=== PATIENT | female | born 1950 ===

== ENCOUNTER 2019-08-24 06:20 | Inpatient (IN) ==
[~2019-08-24 06:20] MED LIST: Bacitracin 50,000 UNIT, Polymyxin B Sulfate 500,000 UNIT, Sodium Chloride IRRigation 1,... IR ONE
--- NOTE | 2019-08-24 06:56 | History & Physical Report ---
Date of Encounter: 08/24/19 Time of Encounter: 06:55 24 Hour HP Update - Instructions Instructions: If the History and Physical is less than 30 days old and was completed prior to A.M. admission and or procedure and has NOT been updated on calendar day of procedure please complete this update prior to performing procedure. - Update Patient reports changes in Medical Condition: No Changes in examination, assessment, or condition: No Changes in Medication: No Preop tests/diagnostics Reviewed: Yes Pre-Op MRSA Screen: Negative Surgery Remains Indicated: Yes Consent for Planned Operative Procedure(s) Verified: Yes - Pre-Operative Checklist Preoperative Checklist Indicated: No Prophylactic Antibiotic Ordered: Yes Home Medications Include Beta Roula: No Beta Roula Taken Today (Day of Surgery): No Beta Roula Taken Yesterday (Day Prior to Surgery): No Is VTE Prophylaxis Indicated?: Yes
[2019-08-24] MEDS ORDERED: CeFAZolin Syr 2,000MG/20 ML 2,000 MG/20 ML SYRINGE IVPB ONE (06:58)
[2019-08-24] MEDS ORDERED: Albuterol 2.5 MG/3 ML NEBULIZER IH ONE (06:58)
[2019-08-24] MEDS ORDERED: *HR* OxyCODONE Immed Rel 5 MG TABLET PO PRN (06:59)
[2019-08-24] MEDS ORDERED: *HR* HYDROmorphone (PF) 1 MG/ML SYRINGE IVP PRN (06:59)
[2019-08-24] MEDS ORDERED: Ondansetron 4 MG/2 ML VIAL IVP ONE (06:59)
[2019-08-24] MEDS ORDERED: *HR* Promethazine 25 MG/ML VIAL IVP PRN (06:59)
[2019-08-24] MEDS ORDERED: Ringers Solution, Lactated 1,000 ML IVC SCH ×2 (07:00→13:46)
--- NOTE | 2019-08-24 07:03 | Anesthesia Evaluation PreOp ---
Date of Encounter: 08/24/19 Time of Encounter: 07:00 - Past History Planned Operation: PLIF L3-5 Cardiac History: HTN, Hyperlipidemia Pulmonary History: Smoker (3 cigs day), COPD (3L O2 at Night) CABLE TENDER History: Other (Bopolar, Schizophrenia) Other Medical History: Thyroid (Hypo), Other (Obese) Anesthesia History: No Prior Anesthetic Complications, Past Anesthesia (ELAINE, GB, Thoracotomy, Lumbar Radiculopathy) : No Alcohol Use: none Drug use: marijuana Medications and Allergies Aspirin [Lo-Dose Aspirin EC] 81 mg PO DAILY 08/24/19 [History] Citalopram [CeleXA] 20 mg PO DAILY 08/24/19 [History] Cyclobenzaprine [Flexeril] 10 mg PO TID PRN 08/24/19 [History] Ergocalciferol (VITAMIN D2) [Vitamin D2] 50,000 unit PO WE 08/24/19 [History] Estrogens, Conjugated [Premarin] 1.25 mg PO DAILY 08/24/19 [History] Fluticasone/Umeclidin/Vilanter [Trelegy Ellipta 100-62.5-25] 1 puff IH DAILY 08/24/19 [History] Ipratropium/Albuterol Neb [Duoneb] 3 ml IH Q6HR 08/24/19 [History] Ipratropium/Albuterol Sulfate [Combivent Respimat Inhal [place]] 1 puff IH QID PRN 08/24/19 [History] Levothyroxine [Synthroid] 75 mcg PO DAILY 08/24/19 [History] Lisinopril [Zestril] 10 mg PO DAILY 08/24/19 [History] Lovastatin [Mevacor] 20 mg PO HS 08/24/19 [History] Metoprolol [Lopressor] 25 mg PO BID 08/24/19 [History] Montelukast [Singulair] 10 mg PO DAILY 08/24/19 [History] Spironolact/Hydrochlorothiazid [Aldactazide 25-25 Tablet] 1 tab PO DAILY 08/24/19 [History] clonazePAM [Clonazepam] 1 mg PO TID PRN 08/24/19 [History] risperiDONE [Risperidone] 1 mg PO DAILY 08/24/19 [History] Allergy/AdvReac Type Severity Reaction Status Date / Time Erythromycin Base Allergy Anaphylaxis Verified 08/24/19 07:14 - Meds/Allergy Pre-op Review Medications Reviewed: Yes Allergies Reviewed: Yes Beta Blockers on Current Med List: Yes If Beta Blockers taken, Date/Time (Last Dose taken): 04:00 Anesthesia Results - Labs Laboratory Tests 08/04/19 08/04/19 08/04/19 15:36 15:36 15:36 WBC 12.6 H Hgb 12.4 Hct 37.4 Plt Count 456 H INR 1.0 Sodium 136 Potassium 4.0 Chloride 103 Carbon Dioxide 25 BUN 11 Creatinine 0.54 L - Imaging EKG: report reviewed (SINUS RHYTHM WITH SHORT W[place] INTERVAL POSSIBLE INFERIOR MYOCARDIAL INFARCTION, PROBABLY OLD Electronically Signed On 08-06-2019 17:35:55 EDT by Hilario Floyd) Additional studies: 08/13/19 Stress EF > 69% No Ischemia Anesthesia Exam O2 Sat Height 1.59 m Weight 95.254 kg O2 Sat by Pulse Oximetry 95 Vital Signs Temp Pulse Resp BP Pulse Ox 98.2 F 89 18 150/80 95 08/24/19 06:49 08/24/19 06:49 08/24/19 06:49 08/24/19 06:49 08/24/19 06:49 NPO (# of Hours): > 8 hrs Pain Scale: 0 Pain Scale Used: Numeric (1 - 10) - HEENT Pupil (Motor): Pupils equal, EOMI Mallampati: II Teeth: Missing Denture Type: Upper: Complete Oral Opening: Greater than 3 - CABLE TENDER LOC: Oriented CABLE TENDER Motor: Normal RUE, Normal LUE, Normal RLE, Normal LLE, Normal Face CABLE TENDER Sensory: Normal: RUE, LUE, RLE, LLE, Face - Cardiac Rhythm: Regular Murmur: None JVD: No Carotid Bruit: No - Pulmonary Breath Sounds: bilateral Clear Respiratory Effort: Symmetrical Anesthesia Assess/Plan ASA Score: 3 Level of consciousness: Cooperative Anesthetic Plan: General Autologous Blood: Yes Monitoring Plan: Standard Monitors, A-Line Recovery Plan: PACU
[2019-08-24] MEDS ORDERED: Gabapentin 300 MG CAPSULE PO ONE (07:22)
[2019-08-24] MEDS ORDERED: Dexmedetomidine HCl 400 MCG/100 ML MLS IVC ONE (07:23)
[2019-08-24] MEDS ORDERED: Acetaminophen IV 1,000 MG/100 ML INFUS..BTL ONE (07:23)
[2019-08-24] MEDS ORDERED: *HR* Propofol 200 MG/20 ML VIAL IVP ONE (07:27)
[2019-08-24] MEDS ORDERED: *HR* FentaNYL (PF) 100 MCG/2 ML VIAL ONE (07:27)
[2019-08-24] MEDS ORDERED: *HR* Midazolam HCl 2 MG/2 ML VIAL ONE (07:27)
[2019-08-24] MEDS ORDERED: *HR* Succinylcholine 200 MG/10 ML VIAL IVP ONE (07:31)
[2019-08-24] MEDS ORDERED: Lidocaine -MPF 2% 2 ML VIAL ONE (07:31)
[2019-08-24] MEDS ORDERED: *HR* Rocuronium Bromide 50 MG/5 ML VIAL ONE (07:31)
[2019-08-24] MEDS ORDERED: Lidocaine HCL 4 ML Topical Solution (Laryng-O-Jet Kit Sterile Pak) TP ONE (07:32)
[2019-08-24] MEDS ORDERED: Heparin 1,000 UNITS/500 mL 500 ML ONE (07:33)
[2019-08-24] MEDS ORDERED: *HR* HYDROMORPHONE 2 MG/ML VIAL ONE ×2 (08:37→11:13)
[2019-08-24] MEDS ORDERED: Ondansetron 4 MG/2 ML VIAL ONE (08:44)
[2019-08-24] MEDS ORDERED: Dexamethasone 4 MG/ML VIAL ONE (08:44)
[2019-08-24] MEDS ORDERED: *HR* PHENYLEPHRINE 1,000 MCG/10 ML SYRINGE IVP ONE (09:34)
[2019-08-24] MEDS ORDERED: Ketorolac 30 MG/ML VIAL ONE (11:09)
[2019-08-24] MEDS ORDERED: Neostigmine Methylsulfate 3 MG/3 ML SYRINGE ONE (11:10)
--- NOTE | 2019-08-24 11:51 | Orthopedic Operative Note ---
Date of procedure: 08/24/19 Pre-op diagnosis: Spondylolisthesis, lumbar stenosis, lumbar radiculopathy Post-op diagnosis: same Operation/Findings: Posterior lumbar interbody fusion L3-L5: The patient successfully underwent general endotracheal anesthesia. The patient was given antibiotics prior to the start of the procedure. Compression boots and stockings were used for deep vein thrombosis prophylaxis. A Perez catheter was placed. Leads for neuro monitoring were placed on the upper and lower extremities. This included the cranium. The neuro monitoring personnel confirmed there were satisfactory readings prior to the start of the procedure. The patient was turned prone on the [place] table. The back was prepped and draped in the usual sterile fashion. An incision was was marked and centered over the involved L3-L5 levels in the mid line. The incision was deepened through the lumbar fascia. Bovie cautery and Schuster elevators were used to reflect the paraspinal musculature at the lateral extent of the transverse processes of the involved L3-L5 levels. Ingrid clamps were placed over the L4 and L5 spinous processes. An intraoperative lateral fluorograph was obtained. A conversation was held between the surgeon and radiologist and both confirmed we had the correct operative levels. We then placed pedicle screws in standard fashion with the aid of fluoroscopy and anatomic landmarks. Briefly a starter awl was used. A gearshift was subsequently used to enter the company pilot hole via a transpedicular route into the vertebral body. The company pilot hole was tapped with an undersized instrument, and subsequently three 6.5 x 40 mm pedicle screws were placed on the left side at the indicated L3, L4, and L5 levels. The screws were tested with the aid of the neurologic monitoring staff via pedicle screw stimulation. All reading suggested there was no significant cortical wall breech. The screws were also evaluated fluoro- graphically and appeared to be in satisfactory position. We then turned our attention to the decompression portion of the procedure. We removed the supraspinous and interspinous ligaments and subsequently the insertion of the ligamentum flavum on the undersurface of the proximal L4 lamina was dislodged with a curette. We then removed the ligamentum flavum as well as undercut the L4-L5 facets at this L4-L5 level to decompress the lateral recesses. We also performed a L4 laminectomy. We moved proximally to the L3-4 level and again removed the supraspinous and interspinous ligaments, undercut the L3-4 facets, did a partial L3 laminectomy, and did partial medial facetectomies at L3-4. After the decompression, which was over and above that which was required to place the interbody grafts, the foramen and traversing roots at the L3-4 and L4-5 levels were found to be free and patent. We also took part of the medial facets at these levels in order to aid in the decompression. We then protected the neural elements including the thecal sac and traversing nerve root on the left at L4-5 with a dural retractor. We made an annulotomy into the L4-L5 disc space and then removed entire disc material using Pituitary instruments. We trialed various size grafts after the endplates were prepared for graft insertion. A 10 x 26 enter body graft fit well within the L4-L5 disc space. We obtained some bone from the left posterior superior iliac spine through us a separate incision and combined with this with the bone which we had saved from the laminectomy of L3 and L4 portion of the procedure. This autograft bone was first placed in the anterior portion of the L4-L5 disc space and additional bone was placed within the interbody graft spacer. We then placed the interbody graft spacer obliquely across the L4-L5 disc space towards the midline while protecting the neural elements with a root retractor. When the graft was found to be in satisfactory position the oval or circular glass cutter was removed. We then repeated the procedure the L3-4 disks by removing entire disc material at L3-4 after an annulotomy, preparing the endplates at L3 and L4 for graft insertion, trialing the graft size. An 8 x 26 mm interbody graft fit well within L3-4 and after packing the anterior portion of the disc space with autograft bone, we placed and interbody spacer packed with bone graft obliquely across the L3-4 disc space towards the midline. After the graft was in satisfactory position this oval or circular glass cutter was removed. We then copiously irrigated the wound. We then decorticated the L3, L4, and L5 transverse processes bilaterally as well as the facet joints of the involved L3-4, and L4-5 levels to aid in the posterolateral fusion. We placed autograft bone in the lateral gutters over these regions. We then placed rods within the screw heads of the involved L3-L5 levels and first locked the distal screws and then subsequently locked the proximal screws so as to improve and reduce the spondylolisthesis previously seen. We then closed the wound in layers with 1 Vicryl for the fascia, 2-0 Vicryl. Subcutaneous tissue, and Dermabond was used for skin closure. Sterile dressings were placed over the wound. The patient was turned supine on a hospital bed and extubated. All sponge instruments and needle counts were correct at the end of the procedure. The patient tolerated the procedure well without complications. Anesthesia: GETA Surgeon: Markos Ramon Jr Was there an residential assistant present: No Estimated blood loss (cc): 80 Specimen: None Condition: stable Disposition: PACU
--- NOTE | 2019-08-24 12:09 | Anesthesia Procedures ---
Date of Encounter: 08/24/19 Time of Encounter: 07:50 Procedures: Anesthesia - Arterial Line Consent obtained: written consent Time out performed: Yes Local Anesthetic: Other (lidocaine 2%) Amount of Anesthetic used (mls): 0.5 Size (Gauge): 20 Length (inches): 1 3/4 Technique Used: sterile prep, guide wire technique, direct puncture technique Post-Procedure: line sutured into place, line taped into place, dry sterile dressing placed Patient tolerated procedure: well, no complications Complications: none Site: Radial L Vitals: see anesthetic record
[2019-08-24] MEDS ORDERED: *HR* Metoprolol 5 MG/5 ML VIAL IVP ONE ×2 (13:10→13:12)
--- NOTE | 2019-08-24 13:31 | Anesthesia Evaluation Post Op ---
Date of Encounter: 08/24/19 Time of Encounter: 13:31 - Vital Signs Vital Signs: Vital Signs/O2 Sat, Most Current Temp Pulse Resp BP Pulse Ox 98.8 F 101 14 104/83 95 08/24/19 12:02 08/24/19 13:22 08/24/19 13:22 08/24/19 13:22 08/24/19 13:12 - Lungs Lungs: Clear Ascult./Percussion - Airway Airway: Non-obstructed - Cardiovascular Regular Rate - Mental Status Mental Status: Alert & Oriented, Answers Appropriately - Pain Pain Scale: 0 Pain Scale used: Numeric (1 - 10) - Nausea Vomiting Nausea Vomiting: Not Present - Hydration Hydration: Ice chips, Perez catheter - Discharge PostOp Status: Transfer Patient to floor
[2019-08-24] MEDS ORDERED: Naloxone 0.4 MG/ML INJ IVP PRN (13:46)
[2019-08-24] MEDS ORDERED: (Ipratropium/Albuterol Sulfate [Combivent Respimat 20 IH PRN (13:46)
[2019-08-24] MEDS ORDERED: Ondansetron 4 MG/2 ML VIAL IVP PRN (13:46)
[2019-08-24] MEDS ORDERED: Acetaminophen 325 MG TABLET PO PRN (13:46)
[2019-08-24] MEDS: Ipratropium/Albuterol Neb 3 ML IH SCH ×2 (16:35→22:30)
[2019-08-24] MEDS: *HR* HYDROcodone/Acet 5/325 mg TABLET PO PRN (16:55)
[2019-08-24] MEDS: *HR* OxyCODONE Immed Rel 5 MG TABLET PO PRN (21:22)
[2019-08-25] MEDS: *HR* HYDROcodone/Acet 5/325 mg TABLET PO PRN ×2 (02:25→17:51)
[2019-08-25] MEDS: Ipratropium/Albuterol Neb 3 ML IH SCH ×4 (04:04→22:26)
[2019-08-25] MEDS: clonazePAM 1 MG TABLET PO PRN ×2 (05:24→19:47)
[2019-08-25] MEDS: Cholecalciferol (D-3) 1,000 UNIT (25MCG) TABLET PO SCH (08:17)
[2019-08-25] MEDS: Aspirin Enteric Coated 81 MG Tablet PO SCH (08:17)
[2019-08-25] MEDS: risperiDONE 1 MG TABLET PO SCH (08:17)
[2019-08-25] MEDS: hydroCHLOROthiazide 25 MG TABLET PO SCH (08:17)
[2019-08-25] MEDS: Spironolactone 25 MG TABLET PO SCH (08:18)
[2019-08-25] MEDS: *HR* OxyCODONE Immed Rel 5 MG TABLET PO PRN ×2 (08:19→14:05)
[2019-08-25] MEDS: (Fluticasone/Umeclidin/Vilanter [Trelegy Ellipta 100- IH SCH (08:26)
--- NOTE | 2019-08-25 08:59 | Orthopedics Progress Note ---
Date of Encounter: 08/25/19 Time of Encounter: 11:30 - Assessment and Plan (1) Spondylolisthesis Current Visit: Yes Status: Chronic Qualifiers: Spinal region: unspecified Qualified Code(s): M43.10 - Spondylolisthesis, site unspecified (2) Lumbar radiculopathy Current Visit: Yes Status: Chronic (3) Lumbar stenosis Current Visit: Yes Status: Chronic Qualifiers: Neurogenic claudication status: unspecified Qualified Code(s): M48.061 - Spinal stenosis, lumbar region without neurogenic claudication (4) Status post lumbar spinal fusion Current Visit: Yes Status: Acute Subjective Principal diagnosis: s/p PLIF Interval history: s/p Posterior lumbar interbody fusion L3-L5 [Spondylolisthesis, lumbar stenosis, lumbar radiculopathy] 08/24/19 Patient seen at bedside. Patient sitting in chair. A&Ox3 Dressing and incision c/d/i LSO brace in place No calf tenderness, erythema, or warmth. Neurovascularly intact b/l LE. Labwork, vitals, and medications reviewed. Pain control: Adequate Participating in therapy. All questions and concerns addressed. Educated on use of incentive spirometer, ambulation, and hydration. Patient educated on post-operative restrictions and care. Addressed: see above. Patient course and disposition discussed with Dr. Ramon D/C plan: continue postoperative care Objective Vital signs: Vital Signs Temp Pulse Resp BP Pulse Ox 08/25/19 07:25 99.3 F 105 17 128/78 93 08/25/19 04:04 16 93 08/25/19 03:55 98.9 F 100 16 128/71 93 08/24/19 22:30 16 93 08/24/19 19:43 98.4 F 112 16 144/81 93 08/24/19 14:47 117 16 114/77 94 08/24/19 14:40 98.5 F 115 18 116/76 94 08/24/19 14:10 99.0 F 112 16 105/73 94 08/24/19 13:40 97.6 F 106 18 110/77 93 08/24/19 13:22 101 14 104/83 08/24/19 13:12 112 16 107/78 95 08/24/19 13:02 115 16 116/90 96 08/24/19 12:52 102 16 106/75 97 08/24/19 12:42 101 14 106/75 98 08/24/19 12:32 97 14 103/73 98 08/24/19 12:22 96 12 101/65 95 08/24/19 12:12 94 18 94/63 95 08/24/19 12:02 98.8 F 94 14 100/70 95 Intake and Output 08/24/19 08/25/19 08/25/19 23:59 07:59 15:59 Intake Total 100 / 120 550 / 550 Output Total 2400 / 2400 Balance 100 / -80 -1850 / -1850 Intake: IV Fluids 100 / 120 100 / 100 Ancef 2,000 MG In 0.9 % Sodium 100 / 100 100 / 100 Chloride 100 ML @ 200 mls/hr IVPB Q8HR [facility] Rx#:[id number] Oral 450 / 450 Output: Catheter 2400 / 2400 Other: # Voids 1 Consult Discharge Plan - Plan Referrals: Kaya Solano MD [Primary Care Provider] -
[2019-08-25] MEDS ORDERED: NON-FORMULARY MEDICATION 1 EACH EACH (Spironolact/Hydrochlorothiazid [Aldactazide 25-25 Ta PO SCH (09:00)
[2019-08-26] MEDS: *HR* HYDROcodone/Acet 5/325 mg TABLET PO PRN ×2 (00:15→08:13)
[2019-08-26] MEDS: *HR* OxyCODONE Immed Rel 5 MG TABLET PO PRN ×3 (03:16→20:03)
[2019-08-26] MEDS: Ipratropium/Albuterol Neb 3 ML IH SCH ×4 (03:43→22:13)
[2019-08-26] MEDS: Aspirin Enteric Coated 81 MG Tablet PO SCH (08:23)
[2019-08-26] MEDS: risperiDONE 1 MG TABLET PO SCH (08:24)
[2019-08-26] MEDS: Cholecalciferol (D-3) 1,000 UNIT (25MCG) TABLET PO SCH (08:24)
[2019-08-26] MEDS: Spironolactone 25 MG TABLET PO SCH (08:24)
[2019-08-26] MEDS: hydroCHLOROthiazide 25 MG TABLET PO SCH (08:24)
[2019-08-26] MEDS: (Fluticasone/Umeclidin/Vilanter [Trelegy Ellipta 100- IH SCH (08:33)
--- NOTE | 2019-08-26 11:00 | Orthopedics Progress Note ---
Date of Encounter: 08/26/19 Time of Encounter: 11:00 - Assessment and Plan (1) Spondylolisthesis Current Visit: Yes Status: Chronic Qualifiers: Spinal region: unspecified Qualified Code(s): M43.10 - Spondylolisthesis, site unspecified (2) Lumbar radiculopathy Current Visit: Yes Status: Chronic (3) Lumbar stenosis Current Visit: Yes Status: Chronic Qualifiers: Neurogenic claudication status: unspecified Qualified Code(s): M48.061 - Spinal stenosis, lumbar region without neurogenic claudication (4) Status post lumbar spinal fusion Current Visit: Yes Status: Acute Subjective Principal diagnosis: s/p PLIF Interval history: s/p Posterior lumbar interbody fusion L3-L5 [Spondylolisthesis, lumbar stenosis, lumbar radiculopathy] 08/24/19 Patient seen at bedside. Patient sitting in chair. A&Ox3 Dressing and incision c/d/i LSO brace in place No calf tenderness, erythema, or warmth. Neurovascularly intact b/l LE. Labwork, vitals, and medications reviewed. Pain control: Adequate Participating in therapy. All questions and concerns addressed. Educated on use of incentive spirometer, ambulation, and hydration. Patient educated on post-operative restrictions and care. Addressed: see above. Patient course and disposition discussed with Dr. Ramon D/C plan: continue postoperative care Objective Vital signs: Vital Signs Temp Pulse Resp BP Pulse Ox 08/26/19 10:21 18 94 08/26/19 07:40 99.5 F 95 16 129/81 93 08/26/19 03:45 18 95 08/26/19 03:11 99.2 F 92 16 115/70 95 08/25/19 22:48 99.8 F H 94 18 102/60 93 08/25/19 22:28 18 94 08/25/19 18:49 99.9 F H 114 17 102/71 93 08/25/19 16:00 18 92 08/25/19 15:49 100.0 F H 110 18 110/63 93 08/25/19 11:42 98.7 F 97 18 102/68 92 Intake and Output 08/25/19 08/26/19 08/26/19 23:59 07:59 15:59 Intake Total 200 / 1830 50 / 170 120 / 170 Balance 200 / -570 50 / 170 120 / 170 Intake: Oral 200 / 1730 50 / 170 120 / 170 Other: Meal Breakfast Percent of Meal Consumed 50% # Voids 1 1 Weight 95.3 kg Patient Weight 08/26/19 23:59 Weight 95.3 kg - Labs Labs: Abnormal lab results POC Glucose 150 mg/dL (70-99) H 08/26/19 03:08 Consult Discharge Plan - Plan Referrals: Kaya Solano MD [Primary Care Provider] -
[2019-08-26] MEDS: clonazePAM 1 MG TABLET PO PRN (17:14)
[2019-08-27] MEDS: *HR* HYDROcodone/Acet 5/325 mg TABLET PO PRN ×2 (00:15→09:10)
[2019-08-27] MEDS: Ipratropium/Albuterol Neb 3 ML IH SCH ×3 (04:00→15:40)
[2019-08-27] MEDS: *HR* OxyCODONE Immed Rel 5 MG TABLET PO PRN ×2 (05:36→13:41)
[2019-08-27] MEDS: Cholecalciferol (D-3) 1,000 UNIT (25MCG) TABLET PO SCH (09:04)
[2019-08-27] MEDS: Aspirin Enteric Coated 81 MG Tablet PO SCH (09:05)
[2019-08-27] MEDS: hydroCHLOROthiazide 25 MG TABLET PO SCH (09:05)
[2019-08-27] MEDS: Spironolactone 25 MG TABLET PO SCH (09:05)
[2019-08-27] MEDS: risperiDONE 1 MG TABLET PO SCH (09:05)
[2019-08-27] MEDS ORDERED: MOM Conc 10 ML UD.LIQ PO ONE (09:51)
[2019-08-27] MEDS: clonazePAM 1 MG TABLET PO PRN (10:10)
--- NOTE | 2019-08-27 13:48 | Discharge Summary ---
Date of Encounter: 08/27/19 Time of Encounter: 13:00 - Discharge Diagnosis (1) Spondylolisthesis Priority: Primary Status: Chronic Qualifiers: Spinal region: unspecified Qualified Code(s): M43.10 - Spondylolisthesis, site unspecified (2) Lumbar radiculopathy Priority: Primary Status: Chronic (3) Lumbar stenosis Priority: Primary Status: Chronic Qualifiers: Neurogenic claudication status: unspecified Qualified Code(s): M48.061 - Spinal stenosis, lumbar region without neurogenic claudication (4) Status post lumbar spinal fusion Priority: Primary Status: Acute - Hospital Course Hospital course: Ms. Ye is a 69 year old female s/p Posterior lumbar interbody fusion L3-L5 [Spondylolisthesis, lumbar stenosis, lumbar radiculopathy] 08/24/19 Patient seen at bedside. Patient sitting in chair. A&Ox3 Dressing and incision c/d/i LSO brace in place No calf tenderness, erythema, or warmth. Neurovascularly intact b/l LE. Labwork, vitals, and medications reviewed. Pain control: Adequate Participating in therapy. All questions and concerns addressed. Educated on use of incentive spirometer, ambulation, and hydration. Patient educated on post-operative restrictions and care. Addressed: Patient with ongoing scant drainage to dressing. Educated to change daily and nursing staff to provide with dressing supplies and instruction re: to change daily. Follow up next week for wound check. The patient's postoperative course was uneventful. Progressed from intravenous analgesic needs to oral analgesic needs only. Remained neurovascularly intact and mobilized satisfactorily. All radiographic studies were satisfactory. Patient course and disposition discussed with Dr. Ramon Patient is discharged to home with home health with plan for rehabilitation and outpatient orthopedic follow up has been arranged. - Time Spent with Patient Total time spent providing and/or coordinating discharge services: - Discharge Medications Prescriptions: New Docusate Sodium [Colace] 100 mg PO BID 5 Days #10 capsule Acetaminophen [Non-Aspirin Extra Strength] 500 mg PO Q6H PRN 7 Days #28 tablet PRN Reason: Mild To Moderate Pain OxyCODONE Immed Rel [Roxicodone 5 MG] 5 mg PO Q6HR PRN 5 Days #20 tablet PRN Reason: Severe Pain Continued Citalopram [CeleXA] 20 mg PO DAILY clonazePAM [Clonazepam] 1 mg PO TID PRN PRN Reason: Anxiety Cyclobenzaprine [Flexeril] 10 mg PO TID PRN PRN Reason: Muscle Spasm Ergocalciferol (VITAMIN D2) [Vitamin D2] 50,000 unit PO WE Fluticasone/Umeclidin/Vilanter [Trelegy Ellipta 100-62.5-25] 1 puff IH DAILY Ipratropium/Albuterol Neb [Duoneb] 3 ml IH Q6HR Ipratropium/Albuterol Sulfate [Combivent Respimat 20-100 Mcg] 1 puff IH QID PRN PRN Reason: Shortness Of Breath Lisinopril [Zestril] 10 mg PO DAILY Lovastatin [Mevacor] 20 mg PO HS Metoprolol [Lopressor] 25 mg PO BID Montelukast [Singulair] 10 mg PO DAILY risperiDONE [Risperidone] 1 mg PO DAILY Spironolact/Hydrochlorothiazid [Aldactazide 25-25 Tablet] 1 tab PO DAILY Aspirin [Lo-Dose Aspirin EC] 81 mg PO DAILY Estrogens, Conjugated [Premarin] 0.625 mg PO DAILY Levothyroxine [Synthroid] 50 mcg PO 0630 Tramadol HCl [Ultram] 50 mg PO BID PRN PRN Reason: Mild To Moderate Pain Home Medications: Aspirin [Lo-Dose Aspirin EC] 81 mg PO DAILY 08/24/19 [History] Citalopram [CeleXA] 20 mg PO DAILY 08/24/19 [History] Cyclobenzaprine [Flexeril] 10 mg PO TID PRN 08/24/19 [History] Ergocalciferol (VITAMIN D2) [Vitamin D2] 50,000 unit PO WE 08/24/19 [History] Estrogens, Conjugated [Premarin] 0.625 mg PO DAILY 08/24/19 [History] Fluticasone/Umeclidin/Vilanter [Trelegy Ellipta 100-62.5-25] 1 puff IH DAILY 08/24/19 [History] Ipratropium/Albuterol Neb [Duoneb] 3 ml IH Q6HR 08/24/19 [History] Ipratropium/Albuterol Sulfate [Combivent Respimat 20-100 Mcg] 1 puff IH QID PRN 08/24/19 [History] Levothyroxine [Synthroid] 50 mcg PO 0630 08/24/19 [History] Lisinopril [Zestril] 10 mg PO DAILY 08/24/19 [History] Lovastatin [Mevacor] 20 mg PO HS 08/24/19 [History] Metoprolol [Lopressor] 25 mg PO BID 08/24/19 [History] Montelukast [Singulair] 10 mg PO DAILY 08/24/19 [History] Spironolact/Hydrochlorothiazid [Aldactazide 25-25 Tablet] 1 tab PO DAILY 08/24/19 [History] Tramadol HCl [Ultram] 50 mg PO BID PRN 08/24/19 [History] clonazePAM [Clonazepam] 1 mg PO TID PRN 08/24/19 [History] risperiDONE [Risperidone] 1 mg PO DAILY 08/24/19 [History] Acetaminophen [Non-Aspirin Extra Strength] 500 mg PO Q6H PRN 7 Days #28 tablet 08/27/19 [Rx] Docusate Sodium [Colace] 100 mg PO BID 5 Days #10 capsule 08/27/19 [Rx] OxyCODONE Immed Rel [Roxicodone 5 MG] 5 mg PO Q6HR PRN 5 Days #20 tablet 08/27/19 [Rx] Allergies/Adverse Reactions: Allergy/AdvReac Type Severity Reaction Status Date / Time Erythromycin Base Allergy Anaphylaxis Verified 08/24/19 07:14 Date of admission: 08/24/19 14:53 Primary care physician: Kaya Solano MD Consults: 08/24/19 13:46 Consult to Occupational Therapy [CONS] Routine Comment: Evaluate, develop and implement POC Reason for Consult: Postoperative rehabilitation Does patient have active BEDREST order?: No Is patient medically & hemodynamically stable?: Yes Patient assessed for mobility or mobilized this visit?: No Consult to Physical Therapy [CONS] Routine Comment: Evaluate, develop and implement POC Reason for Consult: Postoperative rehabilitation Does patient have active BEDREST order?: No Is patient medically & hemodynamically stable?: Yes Patient assessed for mobility or mobilized this visit?: No Consult to Spine Navigator [CONS] [CONS] Routine 08/24/19 17:31 Consult to Pastoral Services [CONS] Routine Comment: 08/26/19 11:42 Consult to Boatswains Mate [CONS] Routine Reason for SW Consult: discharge placement Discharging clinician: Markos Ramon Jr Anticipated date of discharge: 08/27/19 - VTE Documentation of Mechanical Device: Graduated compression elastic hosiery - Impressions ITS Impressions Fluoroscopy 08/24/19 13:34 IMPRESSION: Intraprocedural fluoroscopic spot images as above. See separate procedure report for more information. D/ / 08/24/2019 13:51:12 Ryan Caldera MD / wilson Interpreting Provider: Ryan Caldera MD Lumbar Spine X-Ray 08/24/19 13:34 IMPRESSION: Intraprocedural fluoroscopic spot images as above. See separate procedure report for more information. D/ / 08/24/2019 13:51:12 Ryan Caldera MD / wilson Interpreting Provider: Ryan Caldera MD Lumbar Spine X-Ray 08/27/19 10:30 IMPRESSION: Pedicle screw and dimas fusion from L3 through L5. No hardware failure. Degenerative changes as discussed above. No new or unexpected finding. D/ / 08/27/2019 10:41:09 Amna Daniels MD / shelley Interpreting Provider: Aman Daniels MD - Patient Status Disposition: Home Health Service Condition: Fair Functional capacity at discharge: uses cane/walker Overall status at discharge: patient is progressing back to baseline - Discharge Instructions Follow Up With: Pepper Harmon PAC [Physician Gasoline Engine Inspector] - 09/07/19 9:45 Kaya Miguel MD [Primary Care Provider] - Additional Instructions: Discharge Instructions: Lumbar Please call [facility] ([phone]), your Primary Care Physician, or report to the ER if you have any of the following symptoms: Fever greater that 101.5, increased pain/redness/drainage/odor for your incision site or any other concerning symptoms. ACTIVITY * May Shower * No Tub Baths * No lifting greater than 10 pounds * No Smoking * No Swimming * No off Ground Activities (Running, Climbing, Ladders, Horseback Riding) * No Driving * Wear Back Brace when up walking if lumbar fusion done * Incentive Spirometer 10 times an hour MEDICATIONS: Upon discharge resume your home medications. Take all the medications as prescribed. Take a stool softener if taking narcotic pain medications. Stool softeners are only effective if you drink enough fluids. Drink 6-8 glass of water or fluids a day, unless this is not allowed for another health problem. Despite using stool softeners, if you haven't had a bowel movement in 3 days, please switch to a gentle laxative. Gentle laxatives are sold over the counter. You should have a bowel movement within 24 hours, if not call the office. You will be discharged from the hospital with a prescription for pain medication. You are encouraged to decrease the use of narcotic pain medication as tolerated. Should you require a refill, please call the office. It is best to call 48-72 hours in advance of needing a prescription refill so you don't run out of medication. WOUND CARE: Remove Dressing Tomorrow. Leave incision open to air. Pat dry when you get out of the shower. FOLLOW-UP: Please follow up with your surgeon in the orthopedic clinic in 2 weeks from the day of surgery. References: [employer] [place] ([email or web address]) - Diet and Activity Activity: as per physical therapy Diet: advance to your usual diet
[2019-08-27 15:03] VITALS: BP 143/70
== END 2019-08-27 16:13 | disposition home health service (06) | DRG 455 ==
LOC: SAMDAY 06:20 → 3NENU 14:53
PROVIDERS: ADMIT Orthopaedic Surgery Orthopaedic Surgery of the Spine; ATTEND Orthopaedic Surgery Orthopaedic Surgery of the Spine